=== PATIENT | male | born 1985 | race Two or more races ===

== ENCOUNTER 2020-11-21 09:03 | Emergency (ER) | payer OTHER ==
[~2020-11-21] VITALS: Ht 170.2 cm; Wt 94.8 kg
[2020-11-21] MEDS ORDERED: SIMVASTATIN5 MG PO (09:35)
[2020-11-21] MEDS ORDERED: PROTONIX20 MG PO (09:36)
[2020-11-21] MEDS ORDERED: VISTARIL25 MG PO (09:36)
== END 2020-11-21 14:48 | disposition home or self-care (01) ==
LOC: ER 09:03
DX: R10.32 Left lower quadrant pain (principal); Z03.818 Encounter for observation for suspected exposure to other biological agents ruled out

== ENCOUNTER 2021-02-07 09:03 | Emergency (ER) | payer OTHER ==
[~2021-02-07] VITALS: Ht 170.2 cm; Wt 93.0 kg
[~2021-02-07 09:03] MED LIST: PROTONIX20 MG PO; SIMVASTATIN5 MG PO; VISTARIL25 MG PO
[2021-02-07] MEDS ORDERED: ZYRTEC10 M3 PO (09:30)
== END 2021-02-07 10:40 | disposition home or self-care (01) ==
LOC: ER 09:03
DX: S93.492A Sprain of other ligament of left ankle, initial encounter (principal); X50.1XXA Overexertion from prolonged static or awkward postures, initial encounter; Y93.89 Activity, other specified; Y92.89 Other specified places as the place of occurrence of the external cause; Y99.8 Other external cause status

== ENCOUNTER 2023-06-30 06:51 | Outpatient (CLI) | payer OTHER ==
[~2023-06-30 06:51] MED LIST changes: +ZYRTEC10 M3 PO
[2023-06-30 08:02] LABS: HEMATOCRIT 38.7 % (39.0-48.0); HEMOGLOBIN 13.2 g/dL (13-16.00); MEAN CORPUSCULAR HEMOGLOBIN 28.6 pg (27.00-32.0); PLATELET COUNT 232 K/uL (150-450)
[2023-06-30 08:47] LABS: % SATURACION 25.4 % (20-50); BILIRUBIN TOTAL 0.54 mg/dL (0.3-1.2); CALCIUM 9.1 mg/dL (8.5-10.1); CREATININE SERUM 0.99 mg/dL (0.70-1.30); FERRITIN 206.3 NG/ML (26-388); GFR 84.16; GLOBULINA 3.9 G/DL (2.4-3.5); POTASSIUM 4.23 mEq/L (3.5-5.1); T4 FREE 0.78 NG/ML (0.76-1.46); TOTAL PROTEIN 7.9 gm/dL (6.4-8.2); TSH 1.79 uIU/mL (0.358-3.74)
[2023-06-30 11:36] LABS: FOLIC ACID 9.46 ng/ml (4.78-20); VITAMIN D3 25 HYDROXY 22.35 ng/ml (30-120)
[2023-07-01 17:07] LABS: ERYTHROPOIETIN 11.6 mIU/mL (2.6-18.5)
[2023-07-02 09:08] LABS: hgb a 57.5 % (96.4-98.8); hgb f 0 % (0.0-2.0); hgb s 39.5 % (0.0)
[2023-07-02 11:30] LABS: PLATELET ESTIMATE NORMAL (NORMAL)
[2023-07-02 13:07] LABS: PARIETAL CELL ANTIBODIES 1.4 Units (0.0-20.0)
[2023-07-02 17:07] LABS: INTRINSIC FACTOR BLOCKING AB 1.1 AU/mL (0.0-1.1)
== END 2023-06-30 07:10 | disposition home or self-care (01) ==
LOC: LAB 06:51
PROVIDERS: ATTEND Internal Medicine Hematology & Oncology
DX: D57.3 Sickle-cell trait (principal); E78.2 Mixed hyperlipidemia; K29.70 Gastritis, unspecified, without bleeding; G47.33 Obstructive sleep apnea (adult) (pediatric)

== ENCOUNTER 2023-06-30 08:19 | Outpatient (CLI) | payer OTHER | END 2023-06-30 08:29 | disposition home or self-care (01) | LOC: SONOGRAMA 08:19 | PROVIDERS: ATTEND Internal Medicine Hematology & Oncology | DX: D57.3 Sickle-cell trait (principal); E78.2 Mixed hyperlipidemia; K29.70 Gastritis, unspecified, without bleeding; G47.33 Obstructive sleep apnea (adult) (pediatric) ==

== ENCOUNTER 2023-10-18 08:50 | Outpatient (CLI) | payer OTHER ==
[~2023-10-18 08:50] MED LIST changes: +ACID REDUCER20 M1; +SINGULAIR10 MG
[2023-10-18 09:49] LABS: HEMATOCRIT 39.4 % (39.0-48.0); HEMOGLOBIN 13.5 g/dL (13-16.00); MEAN CELL VOLUME 84.6 fL (80.0-100.00); MEAN CORPUSCULAR HEMOGLOBIN 29.1 pg (27.00-32.0); MEAN CORPUSCULAR HGB CONC 34.4 g/dl (32.0-36.0); PLATELET COUNT 244 K/uL (150-450); RED BLOOD COUNT 4.66 M/uL (4.00-6.00)
[2023-10-18 10:34] LABS: BILIRUBIN TOTAL 0.58 mg/dL (0.3-1.2); CALCIUM 9.3 mg/dL (8.5-10.1); CREATININE SERUM 0.91 mg/dL (0.70-1.30); GFR 92.75; GLOBULINA 3.9 G/DL (2.4-3.5); POTASSIUM 4.03 mEq/L (3.5-5.1); T4 FREE 0.75 NG/ML (0.76-1.46); TOTAL PROTEIN 7.9 gm/dL (6.4-8.2); TSH 1.47 uIU/mL (0.358-3.74)
[2023-10-18 12:13] LABS: MANUAL PLATELET COUNT 580
[2023-10-18 12:14] LABS: PLATELET ESTIMATE INCREASED (NORMAL)
[2023-10-18 13:04] LABS: FOLIC ACID 12.01 ng/ml (4.78-20); VITAMIN D3 25 HYDROXY 28.57 ng/ml (30-120)
[2023-10-20 09:12] LABS: rbc 5.02 x10E6/uL (4.14-5.80)
== END 2023-10-18 08:51 | disposition home or self-care (01) ==
LOC: LAB 08:50
PROVIDERS: ATTEND Internal Medicine Hematology & Oncology
DX: D57.3 Sickle-cell trait (principal); E78.2 Mixed hyperlipidemia; K29.70 Gastritis, unspecified, without bleeding; G47.33 Obstructive sleep apnea (adult) (pediatric); D50.8 Other iron deficiency anemias; R79.9 Abnormal finding of blood chemistry, unspecified; I10 Essential (primary) hypertension; R74.02 Elevation of levels of lactic acid dehydrogenase [LDH]; K76.89 Other specified diseases of liver; E55.9 Vitamin D deficiency, unspecified; E03.8 Other specified hypothyroidism

== ENCOUNTER 2024-05-09 06:20 | Outpatient (CLI) | payer OTHER ==
[2024-05-09 07:35] LABS: HEMATOCRIT 41.7 % (39.0-48.0); HEMOGLOBIN 13.5 g/dL (13-16.00); MEAN CELL VOLUME 84.6 fL (80.0-100.00); MEAN CORPUSCULAR HEMOGLOBIN 27.4 pg (27.00-32.0); MEAN CORPUSCULAR HGB CONC 32.4 g/dl (32.0-36.0); PLATELET COUNT 225 K/uL (150-450); RED BLOOD COUNT 4.93 M/uL (4.00-6.00); RED CELL DISTRIBUTION WIDTH 14.2 % (11.5-14.5)
[2024-05-09 08:17] LABS: % SATURACION 12.2 % (20-50); ALBUMIN 3.8 gm/dL (3.4-5.0); BILIRUBIN TOTAL 0.5 mg/dL (0.3-1.2); CREATININE SERUM 1.03 mg/dL (0.70-1.30); FERRITIN 185.2 NG/ML (26-388); GFR 79.98; GLOBULINA 3.9 G/DL (2.4-3.5); POTASSIUM 4.22 mEq/L (3.5-5.1); T4 FREE 0.79 NG/ML (0.76-1.46); TOTAL PROTEIN 7.7 gm/dL (6.4-8.2); TSH 2.4 uIU/mL (0.358-3.74)
[2024-05-09 10:45] LABS: FOLIC ACID 11.97 ng/ml (4.78-20); VITAMIN D3 25 HYDROXY 43.58 ng/ml (30-120)
[2024-05-09 10:56] LABS: MANUAL PLATELET COUNT 360
[2024-05-09 10:57] LABS: PLATELET ESTIMATE NORMAL (NORMAL)
== END 2024-05-09 06:24 | disposition home or self-care (01) ==
LOC: LAB 06:20
PROVIDERS: ATTEND Internal Medicine Hematology & Oncology
DX: D57.3 Sickle-cell trait (principal); E78.2 Mixed hyperlipidemia; K29.70 Gastritis, unspecified, without bleeding; G47.33 Obstructive sleep apnea (adult) (pediatric); D50.8 Other iron deficiency anemias; R79.9 Abnormal finding of blood chemistry, unspecified; R74.02 Elevation of levels of lactic acid dehydrogenase [LDH]; K76.89 Other specified diseases of liver; I10 Essential (primary) hypertension; E03.8 Other specified hypothyroidism

== ENCOUNTER 2024-05-29 08:29 | Outpatient (CLI) | payer OTHER ==
[2024-05-29 09:27] LABS: ob NEGATIVE (NEGATIVE)
[2024-05-29 10:32] LABS: % SATURACION 19.6 % (20-50); FERRITIN 180.6 NG/ML (26-388); PROSTATIC SPECIFIC ANTIGEN 0.635 NG/ML (0.010-4.00)
== END 2024-05-29 08:38 | disposition home or self-care (01) ==
LOC: LAB 08:29
PROVIDERS: ATTEND Internal Medicine Hematology & Oncology
DX: D50.8 Other iron deficiency anemias (principal); D57.3 Sickle-cell trait; D51.3 Other dietary vitamin B12 deficiency anemia; E55.9 Vitamin D deficiency, unspecified; E78.2 Mixed hyperlipidemia; K29.70 Gastritis, unspecified, without bleeding; G47.33 Obstructive sleep apnea (adult) (pediatric); R19.5 Other fecal abnormalities; Z12.11 Encounter for screening for malignant neoplasm of colon; C25.9 Malignant neoplasm of pancreas, unspecified; R97.8 Other abnormal tumor markers; R97.0 Elevated carcinoembryonic antigen [CEA]

== ENCOUNTER 2024-08-22 06:52 | Outpatient (CLI) | payer OTHER ==
[2024-08-22 07:36] LABS: BASO % 0.6 % (0.1-1.2); EOS # 0.21 (0.04-0.54); HEMATOCRIT 39.3 % (40.1-51.0); HEMOGLOBIN 13.3 g/dL (13.7-17.5); LYMPH # 1.43 (1.18-3.74); LYMPH % 27.3 % (19.3-53.1); MEAN CORPUSCULAR HEMOGLOBIN 27.4 pg (25.6-32.2); MONO # 0.41 (0.24-0.82); MONO % 7.8 % (4.7-12.5); NEUT # 3.14 (1.56-6.13); NEUT % 59.9 % (34.0-71.1); PLATELET COUNT 245 K/uL (163-369); RED BLOOD COUNT 4.86 M/uL (4.63-6.08); RED CELL DISTRIBUTION WIDTH 13.8 % (11.6-14.4)
[2024-08-22 08:51] LABS: % SATURACION 21.3 % (20-50); ALBUMIN 3.9 gm/dL (3.4-5.0); BILIRUBIN TOTAL 0.52 mg/dL (0.3-1.2); CALCIUM 9.1 mg/dL (8.5-10.1); CREATININE SERUM 0.96 mg/dL (0.70-1.30); FERRITIN 161.6 NG/ML (26-388); GFR 86.75; GLOBULINA 4.1 G/DL (2.4-3.5); POTASSIUM 4.17 mEq/L (3.5-5.1); T4 FREE 0.77 NG/ML (0.76-1.46); TSH 1.28 uIU/mL (0.358-3.74)
[2024-08-22 11:15] LABS: FOLIC ACID 14.08 ng/ml (4.78-20)
== END 2024-08-22 06:58 | disposition home or self-care (01) ==
LOC: LAB 06:52
PROVIDERS: ATTEND Internal Medicine Hematology & Oncology
DX: D50.8 Other iron deficiency anemias (principal); D57.3 Sickle-cell trait; D51.3 Other dietary vitamin B12 deficiency anemia; E55.9 Vitamin D deficiency, unspecified; E78.2 Mixed hyperlipidemia; K29.70 Gastritis, unspecified, without bleeding; G47.33 Obstructive sleep apnea (adult) (pediatric); R79.9 Abnormal finding of blood chemistry, unspecified; I10 Essential (primary) hypertension; R74.02 Elevation of levels of lactic acid dehydrogenase [LDH]; K76.89 Other specified diseases of liver; E03.8 Other specified hypothyroidism

== ENCOUNTER 2024-08-22 07:33 | Outpatient (CLI) | payer OTHER | END 2024-08-22 07:35 | disposition home or self-care (01) | LOC: SONOGRAMA 07:33 | PROVIDERS: ATTEND Internal Medicine Hematology & Oncology | DX: E04.2 Nontoxic multinodular goiter (principal); D50.8 Other iron deficiency anemias; D57.3 Sickle-cell trait; D51.3 Other dietary vitamin B12 deficiency anemia; E55.9 Vitamin D deficiency, unspecified; E78.2 Mixed hyperlipidemia; K29.70 Gastritis, unspecified, without bleeding; G47.33 Obstructive sleep apnea (adult) (pediatric) ==

== ENCOUNTER → 2024-09-25 | Emergency (ER) | payer OTHER ==
[~2024-09-25] VITALS: Ht 170.2 cm; Wt 91.6 kg
[~2024-09-25] MED LIST changes: +AZITHROMYCIN 500 MG TABLET PO ONE; +DEXAMETHASONE SODIUM PHOSPHATE 4 MG/ML VIAL IM ONE; +GUAIFENESIN/DEXTROMETHORPHAN 100MG/10ML BLIST.PACK PO ONE; +TUSNEL LIQUID178 ML PO; +ZITHROMAX500 MG PO
[2024-09-25 14:22] LABS: BASO % 0.5 % (0.1-1.2); EOS # 0.25 (0.04-0.54); EOS % 3.2 % (0.7-7.0); LYMPH # 1.79 (1.18-3.74); LYMPH % 22.6 % (19.3-53.1); MEAN PLATELET VOLUME 10.30 fl (9.4-12.4); MONO # 0.69 (0.24-0.82); MONO % 8.7 % (4.7-12.5); NEUT # 5.15 (1.56-6.13); NEUT % 64.9 % (34.0-71.1); RED CELL DISTRIBUTION WIDTH 13.3 % (11.6-14.4)
[2024-09-25 14:44] LABS: COVID-19 AG NEGATIVE (NEGATIVE)
== END | disposition home or self-care (01) ==
LOC: ER 11:53
PROVIDERS: General Practice
DX: B34.9 Viral infection, unspecified (principal); Z20.822 Contact with and (suspected) exposure to COVID-19; I10 Essential (primary) hypertension
CPT/HCPCS: 36415; 96372; 99283; J1100

== ENCOUNTER 2024-12-13 08:21 | Outpatient (CLI) | payer OTHER ==
[~2024-12-13 08:21] MED LIST changes: -AZITHROMYCIN 500 MG TABLET PO ONE; -DEXAMETHASONE SODIUM PHOSPHATE 4 MG/ML VIAL IM ONE; -GUAIFENESIN/DEXTROMETHORPHAN 100MG/10ML BLIST.PACK PO ONE
[2024-12-13 09:18] LABS: BASO % 0.7 % (0.1-1.2); EOS # 0.18 (0.04-0.54); EOS % 3.3 % (0.7-7.0); LYMPH # 1.54 (1.18-3.74); LYMPH % 28.4 % (19.3-53.1); MEAN PLATELET VOLUME 10.40 fl (9.4-12.4); MONO # 0.50 (0.24-0.82); MONO % 9.2 % (4.7-12.5); NEUT # 3.15 (1.56-6.13); NEUT % 58.2 % (34.0-71.1); RED CELL DISTRIBUTION WIDTH 13.7 % (11.6-14.4)
[2024-12-13 09:57] LABS: ALT/SGPT 42.0 U/L (12-78); AST/SGOT 21.0 U/L (15-37); BILIRUBIN TOTAL 0.62 mg/dL (0.3-1.2); BUN CREA RATIO 13.0 (7.0-25.0); CREATININE SERUM 0.94 mg/dL (0.70-1.30); FE 85.0 ug/dl (65-175); GFR 88.88; GLOBULINA 4.0 G/DL (2.4-3.5); GLUCOSE FASTING 102.0 mg/dL (65-100); LDH 157.0 U/L (87-241); OSMOLALITY SERUM 285.0 MOSM/KG (275-295); T4 FREE 0.75 NG/ML (0.76-1.46); TSH 1.49 uIU/mL (0.358-3.74)
[2024-12-13 13:38] LABS: FOLIC ACID > 20.00 ng/ml (4.78-20)
== END 2024-12-13 08:23 | disposition home or self-care (01) ==
LOC: LAB 08:21
PROVIDERS: ATTEND Internal Medicine Hematology & Oncology
DX: D50.8 Other iron deficiency anemias (principal); I10 Essential (primary) hypertension; R74.02 Elevation of levels of lactic acid dehydrogenase [LDH]; K76.89 Other specified diseases of liver; E53.8 Deficiency of other specified B group vitamins; E03.8 Other specified hypothyroidism